=== PATIENT | male | born 1940 ===

== ENCOUNTER 2017-01-16 08:17 | Observation (INO) | payer MEDICARE ==
[2017-01-16 08:33] VITALS: BMI 25.6
--- NOTE | 2017-01-16 08:39 | ED PDOC ---
HPI: Chest Pain Time Seen by Provider: 01/16/17 08:18 Chief Complaint (Nursing): Chest Pain Chief Complaint (Provider): Chest Pain History Per: Patient History/Exam Limitations: no limitations Onset/Duration Of Symptoms: Days (x7) Current Symptoms Are (Timing): Still Present Additional Complaint(s): Reece Waddell is a 76 year old male with a past medical history of hypertension and CHF presenting to the ED for an evaluation of a 1 week history of back pain worsening on inspiration. The patient denies shortness of breath, cough, fever, or chest pain. PMD: Past Medical History Reviewed: Historical Data, Nursing Documentation, Vital Signs Vital Signs: Last Vital Signs Temp 97.6 F 01/16/17 08:34 Pulse 90 01/16/17 11:16 Resp 19 01/16/17 11:16 BP 170/90 H 01/16/17 11:16 Pulse Ox 98 01/16/17 08:34 - Medical History PMH: CHF, HTN - Family History Family History: States: Unknown Family Hx - Home Medications Home Medications: Ambulatory Orders Medication Instructions Recorded Allopurinol [Zyloprim] 100 mg PO BID 01/16/17 Lisinopril [Zestril] 20 mg PO DAILY 01/16/17 Pravastatin Sodium [Pravachol] 20 mg PO HS 01/16/17 amLODIPine [Norvasc] 5 mg PO DAILY 01/16/17 - Allergies Allergies/Adverse Reactions: Allergies Allergy/AdvReac Type Severity Reaction Status Date / Time No Known Allergies Allergy Verified 01/16/17 08:33 Review of Systems ROS Statement: Except As Marked, All Systems Reviewed And Found Negative Constitutional: Negative for: Fever Cardiovascular: Negative for: Chest Pain Respiratory: Negative for: Cough, Shortness of Breath Musculoskeletal: Positive for: Back Pain Physical Exam - Reviewed Nursing Documentation Reviewed: Yes Vital Signs Reviewed: Yes - Physical Exam Appears: Positive for: Well, Non-toxic, No Acute Distress Head Exam: Positive for: ATRAUMATIC, NORMAL INSPECTION, NORMOCEPHALIC Skin: Positive for: Normal Color, Warm, Dry Eye Exam: Positive for: EOMI, Normal appearance, PERRL Neck: Positive for: Normal, Painless ROM, Supple Cardiovascular/Chest: Positive for: Regular Rate, Rhythm, Chest Non Tender Respiratory: Positive for: Decreased Breath Sounds (bilaterally). Negative for : Wheezing, Respiratory Distress Gastrointestinal/Abdominal: Positive for: Normal Exam, Bowel Sounds, Soft Back: Positive for: Normal Inspection Extremity: Positive for: Normal ROM Neurologic/Psych: Positive for: Alert, Oriented. Negative for: Motor/Sensory Deficits - Laboratory Results Result Diagrams: 01/16/17 08:58 01/16/17 08:58 Medical Decision Making Medical Decision Making: Time: 08:18 Impression: Chest Pain Plan: * ED EKG * COMP Metabolic Panel * Troponin I * CBC (With Differential) * D Dimer [COAG] * Chest Two Views (PA/LAT) [RAD] * Reevaluation EKG with bifascicular block with no previous EKG to compare. Initial troponin neg. CT chest no PE or aortic aneurysm. Will place in obs for chest/back pain and abnormal EKG with no previous EKG to compare. Scribe Attestation: Documented by Francesca Diaz, acting as a scribe for Willy Ochoa MD. Provider Scribe Attestation: All medical record entries made by the Scribe were at my direction and personally dictated by me. I have reviewed the chart and agree that the record accurately reflects my personal performance of the history, physical exam, medical decision making, and the department course for this patient. I have also personally directed, reviewed, and agree with the discharge instructions and disposition. Disposition - Clinical Impression Clinical Impression: Chest pain - Patient ED Disposition Is Patient to be Admitted: Yes - Disposition Disposition Time: 11:49 Condition: FAIR Forms: Handprint (Yoruba) - Pt Status Changed To: Hospital Disposition Of: Observation - POA Present On Arrival: None
[2017-01-16 09:05] LABS: BASO # 0.1 K/uL (0.0-0.2); BASO % 0.8 % (0.0-2.0); EOS % 0.2 % (0.0-4.0); LYMPH # 1.2 K/uL (1.0-4.3); LYMPH % 10.3 % (20.0-40.0); MEAN CELL VOLUME 88.2 fl (80.0-94.0); MEAN CORPUSCULAR HGB CONC 32.9 g/dL (33.0-37.0); MEAN PLATELET VOLUME 7.9 fl (7.2-11.7); MONO # 1.3 K/uL (0.0-0.8); MONO % 11.7 % (0.0-10.0); NEUT # 8.9 K/uL (1.8-7.0); RED CELL DISTRIBUTION WIDTH 13.6 % (11.5-14.5); WHITE BLOOD COUNT 11.6 K/uL (4.8-10.8)
[2017-01-16 09:15] LABS: ALB/GLOB RATIO 1.2 (1.0-2.1); ALKALINE PHOSPHATASE 121 U/L (38-126); ALT/SGPT 66 U/L (21-72); AST/SGOT 73 U/L (17-59); BILIRUBIN,TOTAL 1.3 mg/dl (0.2-1.3); BLOOD UREA NITROGEN 14 mg/dl (9-20); CALCIUM 9.6 mg/dL (8.4-10.2); CARBON DIOXIDE 24 mmol/L (22-30); CHLORIDE 103 mmol/L (98-107); GFR AFRICAN-AMERICAN > 60; GLUCOSE,RANDOM 110 mg/dL (75-110); POTASSIUM 4.1 MMOL/L (3.6-5.0); SODIUM 138 mmol/l (132-148); TOTAL PROTEIN 8.1 G/DL (6.3-8.2)
[2017-01-16] MEDS ORDERED: Iodixanol 320 MG/ML 100 ML BOTTLE IV ONE (10:42)
[2017-01-16] MEDS ORDERED: Sodium Chloride 0.9% 50 ML IV ONE (10:42)
--- NOTE | 2017-01-16 11:31 | CT ---
PROCEDURE: CT Chest with contrast (Pulmonary Angiogram) HISTORY: Back pain elevated d dimer COMPARISON: Chest radiograph 01/08/2017 TECHNIQUE: Axial computed tomography images were obtained of the chest in the pulmonary arterial phase of enhancement. Coronal and sagittal reformatted images were created and reviewed. Intravenous contrast dose: Visipaque 320, 90 cc Radiation dose: Total exam DLP = 340 mGy-cm. This CT exam was performed using one or more of the following dose reduction techniques: Automated exposure control, adjustment of the mA and/or kV according to patient size, and/or use of iterative reconstruction technique. FINDINGS: PULMONARY ARTERIES: Unremarkable. No pulmonary embolism. AORTA: No acute findings. No thoracic aortic aneurysm. LUNGS: Limited ground-glass opacity seen primarily in the bilateral upper lobes which is of uncertain origin. Linear atelectasis is appreciable lingula versus fibrosis. Left hemidiaphragm appears mildly elevated, etiology indeterminate. The bilateral hilar regions appear unremarkable bilaterally. No nodule, mass or pulmonary consolidation. PLEURAL SPACES: Unremarkable. No effusion or pneuomothorax. HEART: Cardiomegaly is noted without pericardial effusion or pulmonary vascular derangement evident. LYMPH NODES: No lymphadenopathy. BONES, CHEST WALL: Multilevel thoracic spondylosis identified. OTHER FINDINGS: Left renal cyst identified including a 4.0 cm upper pole left renal cyst incompletely captured in this exam. IMPRESSION: 1. Limited ground-glass opacity seen in the bilateral upper lobes without alveolitis or other interstitial process appreciable. No pleural or pericardial effusion. 2. No CT evidence of pulmonary embolus. 3. Cardiomegaly.
--- NOTE | 2017-01-16 11:40 | RAD ---
HISTORY: back pain COMPARISON: Comparison is made to 01/15/2013 TECHNIQUE: Chest PA and lateral FINDINGS: LUNGS: The right lung appears smaller in size than the left. The possibility of partial atelectasis of the right upper lobe cannot be excluded. Widening of the mediastinum is also noted. . Elevation of the left hemidiaphragm is again noted. Mild atelectasis at the left lung base is also noted. PLEURA: No significant pleural effusion identified. No pneumothorax apparent. CARDIOVASCULAR: Normal. OSSEOUS STRUCTURES: Diffuse osteopenia and degenerative changes are seen in the spine. VISUALIZED UPPER ABDOMEN: Normal. OTHER FINDINGS: None. IMPRESSION: Left lung base atelectasis and elevation of the left hemidiaphragm. Diffuse osteopenia and degenerative changes in the spine.
[2017-01-16] MEDS ORDERED: Pneumococcal 23-Valent Vaccine IM ONE (20:00)
--- NOTE | 2017-01-16 20:33 | CARD ---
APPROVED REPORT EXAM: Two-dimensional and M-mode echocardiogram with Doppler and color Doppler. Other Information Quality : GoodRhythm : Tachycardia INDICATION Chest Pain 2D DIMENSIONS IVSd0.94 (0.7-1.1cm)LVDd3.98 (3.9-5.9cm) LVOT Diameter2.02 (1.8-2.4cm)PWd0.88 (0.7-1.1cm) IVSs1.22 (0.8-1.2cm)LVDs3.15 (2.5-4.0cm) FS (%) 21.0 %PWs1.25 (0.8-1.2cm) LVEF (%)55.0 (>50%) M-Mode DIMENSIONS Left Atrium (MM)3.74 (2.5-4.0cm)IVSd1.03 (0.7-1.1cm) Aortic Root3.21 (2.2-3.7cm)LVDd5.68 (4.0-5.6cm) Aortic Cusp Exc.2.18 (1.5-2.0cm)PWd1.47 (0.7-1.1cm) IVSs1.68 cmFS (%) 37 % LVDs3.56 (2.0-3.8cm)PWs1.82 cm Mitral Valve MV E Kkslgxsg40.7cm/sMV DECEL [id number] A Ptefddgc762.7cm/s MV DFB58ymS/A ratio0.4MVA (PHT)5.38cm2 TDI Lateral E' Peak V7.50cm/sMedial E' Peak V5.79cm/sE/Lateral E'4.9 E/Medial E'6.3 Pulmonary Valve PV Peak Xpkzwqfw07.8cm/s Tricuspid Valve TR Peak Wjksacrl863rv/sRAP FOJYEOGA85shUdDP Peak Gr.20mmHg GDYW70mtEg LEFT VENTRICLE The left ventricle is normal size. There is mild concentric left ventricular hypertrophy. The left ventricular function is normal. The left ventricular ejection fraction is within the normal range. There is normal LV segmental wall motion. Transmitral Doppler flow pattern is Grade I-abnormal relaxation pattern. RIGHT VENTRICLE The right ventricle is normal size. There is normal right ventricular wall thickness. The right ventricular systolic function is normal. ATRIA The left atrium size is normal. The right atrium size is normal. AORTIC VALVE The aortic valve is mildly thickened. There is trace aortic regurgitation. There is no aortic valvular stenosis. MITRAL VALVE The mitral valve is mildly thickened. There is no mitral valve stenosis. Mitral regurgitation is trace. TRICUSPID VALVE The tricuspid valve is normal in structure and function. There is no tricuspid valve regurgitation noted. PULMONIC VALVE The pulmonary valve is normal in structure There is trace pulmonic valvular regurgitation. GREAT VESSELS The aortic root is normal in size. The IVC was not visualized. PERICARDIAL EFFUSION The pericardium appears normal. <Conclusion> The left ventricle is normal size. There is mild concentric left ventricular hypertrophy. The left ventricular function is normal. The left ventricular ejection fraction is within the normal range. There is normal LV segmental wall motion. Transmitral Doppler flow pattern is Grade I-abnormal relaxation pattern.
--- NOTE | 2017-01-16 21:37 | CARD ---
APPROVED REPORT EKG Measurement Heart [id number] <Conclusion> Normal sinus rhythm Right bundle branch block Left anterior fascicular block Bifascicular block Minimal voltage criteria for LVH, may be normal variant Abnormal ECG
[2017-01-16] MEDS ORDERED: Pravastatin Sodium 20 MG TAB PO SCH (22:00)
--- NOTE | 2017-01-17 11:42 | RAD ---
HISTORY: abnormal CXR COMPARISON: Chest radiographs 01/16/2017 TECHNIQUE: Chest PA and lateral FINDINGS: LUNGS: No active pulmonary disease. PLEURA: No significant pleural effusion identified. No pneumothorax apparent. Left hemidiaphragm appears somewhat elevated which may be due to gas at the splenic flexure, somewhat increased in the interval. Clinically correlate further. CARDIOVASCULAR: Cardiomediastinal silhouette appears stable. OSSEOUS STRUCTURES: No significant abnormalities. VISUALIZED UPPER ABDOMEN: Normal. OTHER FINDINGS: None. IMPRESSION: No acute infiltrate or pleural effusion identified. Left hemidiaphragm slightly elevated composite from gas in the splenic flexure increasing.
[2017-01-17 12:37] VITALS: O2SAT 96
--- NOTE | 2017-01-17 12:42 | CP.PCM.HP ---
History of Present Illness - History of Present Illness History of Present Illness: 76 year old male with a past medical history of HTN and CHF presenting to the ED yesterday c/o upper back pain since last Monday, worsening with inspiration. Patient also reports pain to auto-palpation of trapezius muscles b/l, slightly relief with tylenol at home. The patient denies shortness of breath, cough, fever, chest pain, chills, night sweats. patient seen and examined with attending this morning still c/o right sided subscapular pain reproduced with deep inspiration, denies other complains Present on Admission - Present on Admission Any Indicators Present on Admission: No History of DVT/PE: No History of Uncontrolled Diabetes: No Urinary Catheter: No Decubitus Ulcer Present: No Review of Systems - Review of Systems All systems: reviewed and no additional remarkable complaints except (as per HPI ) Past Patient History - Past Medical History & Family History Past Medical History?: Yes - Past Social History Smoking Status: Never Smoked - CARDIAC Hx Cardiac Disorders: Yes Hx Congestive Heart Failure: Yes Hx Hypertension: Yes - PULMONARY Hx Respiratory Disorders: No - NEUROLOGICAL Hx Neurological Disorder: No - HEENT Hx HEENT Problems: No - RENAL Hx Chronic Kidney Disease: No - ENDOCRINE/METABOLIC Hx Endocrine Disorders: No - HEMATOLOGICAL/ONCOLOGICAL Hx Blood Disorders: No - INTEGUMENTARY Hx Dermatological Problems: No - MUSCULOSKELETAL/RHEUMATOLOGICAL Hx Musculoskeletal Disorders: No Hx Falls: No - GASTROINTESTINAL Hx Bowel Surgery: Yes - GENITOURINARY/GYNECOLOGICAL Hx Genitourinary Disorders: No - PSYCHIATRIC Hx Psychophysiologic Disorder: No Hx Substance Use: No - SURGICAL HISTORY Hx Surgeries: Yes Other/Comment: colon surgery - ANESTHESIA Hx Anesthesia: Yes Hx Anesthesia Reactions: No Hx Malignant Hyperthermia: No Has any member of the family had a problem w/ anesthesia?: No Meds Allergies/Adverse Reactions: Allergies Allergy/AdvReac Type Severity Reaction Status Date / Time No Known Allergies Allergy Verified 01/16/17 08:33 Physical Exam - Constitutional Appears: No Acute Distress - ENT Exam ENT Exam: Mucous Membranes Moist - Respiratory Exam Respiratory Exam: NORMAL BREATHING PATTERN. absent: Rhonchi, Wheezes, Respiratory Distress Additional comments: crackles in lower lobes b/l - Cardiovascular Exam Cardiovascular Exam: REGULAR RHYTHM, +S1, +S2 - GI/Abdominal Exam GI & Abdominal Exam: Normal Bowel Sounds, Soft. absent: Distended, Guarding, Rebound, Rigid, Tenderness - Extremities Exam Extremities exam: Positive for: normal inspection. Negative for: calf tenderness, pedal edema - Back Exam Additional comments: tenderness to palpation of trapeziums muscles b/l, no tenderness to palpation over vertebral spine or paraspinal muscles. - Neurological Exam Neurological exam: Alert, Oriented x3 - Skin Skin Exam: Dry, Intact, Normal Color Results - Vital Signs Recent Vital Signs: Last Vital Signs Temp 97.9 F 01/17/17 08:00 Pulse 90 01/17/17 09:21 Resp 18 01/17/17 08:00 BP 115/70 01/17/17 09:21 Pulse Ox 95 01/17/17 08:00 - Labs Result Diagrams: 01/16/17 08:58 01/16/17 08:58 Labs: Laboratory Results - last 24 hr 01/16/17 01/17/17 18:25 01:00 Troponin I < 0.0120 < 0.0120 Assessment & Plan - Assessment and Plan (Free Text) Plan: Upper back pain worsening with inspiration admit to tele for obs -Troponin x # neg -CXR showed widening of the mediastinum noted. -consider repeat CXR c/w statin consider aspirin f/u Cardiology rec HTN re-assume home meds DVT prophylaxis lovenox SC - Date & Time Date: 01/17/17 Time: 07:55
--- NOTE | 2017-01-17 14:37 | CP.PCM.PCO ---
Assessment/Plan - Assessment/Plan Assessment (Free Text): Pt stable, all tests and imaging negative . Pt seen and cleared for d/c by Dr. Calle. Pt to f/u with PMD or Dr. Calle in 1 week - Consults Consult Orders: Consultations 01/16/17 17:20 Pastoral Care Referral Routine Comment: Physician Instructions: as above Reason For Exam: spiritual care - Problems Patient Problems: Problem List (Active/Current) Problem Status Onset Code Chest pain Acute R07.9
--- NOTE | 2017-01-17 17:11 | CP.PCM.DIS ---
Provider - Provider Date of Admission: 01/16/17 11:50 Attending physician: Dell Addison MD Time Spent in preparation of Discharge (in minutes): 30 Diagnosis - Discharge Diagnosis (1) Chest pain Status: Acute Comment: with inspiration, reproduced with palpation, and improved with tylenol. troponin x 3 neg. ACS r/o. We recommended to f/u with PMD for PFT and work up for interstitial lung diseases as outpatient. (2) Hypertension Status: Chronic Comment: controoled. c/w home meds and f/u with PMD. (3) History of CHF (congestive heart failure) Status: Chronic Comment: most likely diastolic. Echo showed EF wNL. Controlled. F/u with PMD. Hospital Course - Lab Results Lab Results: Most Recent Lab Values WBC 11.6 K/uL (4.8-10.8) H 01/16/17 08:58 RBC 4.87 Mil/uL (4.40-5.90) 01/16/17 08:58 Hgb 14.1 g/dL (12.0-18.0) 01/16/17 08:58 Hct 43.0 % (35.0-51.0) 01/16/17 08:58 MCV 88.2 fl (80.0-94.0) 01/16/17 08:58 MCH 29.0 pg (27.0-31.0) 01/16/17 08:58 MCHC 32.9 g/dL (33.0-37.0) L 01/16/17 08:58 RDW 13.6 % (11.5-14.5) 01/16/17 08:58 Plt Count 186 K/uL (130-400) 01/16/17 08:58 MPV 7.9 fl (7.2-11.7) 01/16/17 08:58 Neut % (Auto) 77.0 % (50.0-75.0) H 01/16/17 08:58 Lymph % (Auto) 10.3 % (20.0-40.0) L 01/16/17 08:58 [place] % (Auto) 11.7 % (0.0-10.0) H 01/16/17 08:58 Eos % (Auto) 0.2 % (0.0-4.0) 01/16/17 08:58 Baso % (Auto) 0.8 % (0.0-2.0) 01/16/17 08:58 Neut # 8.9 K/uL (1.8-7.0) H 01/16/17 08:58 Lymph # 1.2 K/uL (1.0-4.3) 01/16/17 08:58 [place]ton # 1.3 K/uL (0.0-0.8) H 01/16/17 08:58 Eos # 0.0 K/uL (0.0-0.7) 01/16/17 08:58 Baso # 0.1 K/uL (0.0-0.2) 01/16/17 08:58 D-Dimer, Quantitative 632 ng/mlDDU (0-230) H 01/16/17 08:58 Sodium 138 mmol/l (132-148) 01/16/17 08:58 Potassium 4.1 MMOL/L (3.6-5.0) 01/16/17 08:58 Chloride 103 mmol/L (98-107) 01/16/17 08:58 Carbon Dioxide 24 mmol/L (22-30) 01/16/17 08:58 Anion Gap 16 (10-20) 01/16/17 08:58 BUN 14 mg/dl (9-20) 01/16/17 08:58 Creatinine 1.1 mg/dL (0.8-1.5) 01/16/17 08:58 Est GFR ( Amer) > 60 01/16/17 08:58 Est GFR (Non-Af Amer) > 60 01/16/17 08:58 Random Glucose 110 mg/dL (75-110) 01/16/17 08:58 Calcium 9.6 mg/dL (8.4-10.2) 01/16/17 08:58 Total Bilirubin 1.3 mg/dl (0.2-1.3) 01/16/17 08:58 AST 73 U/L (17-59) H 01/16/17 08:58 ALT 66 U/L (21-72) 01/16/17 08:58 Alkaline Phosphatase 121 U/L (38-126) 01/16/17 08:58 Troponin I < 0.0120 ng/mL (0.00-0.120) 01/17/17 01:00 Total Protein 8.1 G/DL (6.3-8.2) 01/16/17 08:58 Albumin 4.4 g/dL (3.5-5.0) 01/16/17 08:58 Globulin 3.7 gm/dL (2.2-3.9) 01/16/17 08:58 Albumin/Globulin Ratio 1.2 (1.0-2.1) 01/16/17 08:58 - Date & Time of H&P Date of H&P: 01/17/17 Time of H&P: 10:00 Discharge Exam - Head Exam Head Exam: ATRAUMATIC, NORMAL INSPECTION, NORMOCEPHALIC - Eye Exam Eye Exam: Normal appearance - ENT Exam ENT Exam: Mucous Membranes Moist - Respiratory Exam Respiratory Exam: NORMAL BREATHING PATTERN. absent: Rhonchi, Wheezes, Respiratory Distress - Cardiovascular Exam Cardiovascular Exam: REGULAR RHYTHM, +S1, +S2 - GI/Abdominal Exam GI & Abdominal Exam: Normal Bowel Sounds, Soft. absent: Distended, Guarding, Rebound, Tenderness - Extremities Exam Extremities exam: normal inspection Additional comments: no calf tenderness, no edema noted b/l - Neurological Exam Neurological exam: Alert, Oriented x3 - Skin Skin Exam: Dry, Intact, Normal Color Discharge Plan - Follow Up Plan Condition: GOOD Disposition: HOME/ ROUTINE Patient education suggested?: Yes Instructions: Chest Pain (DC) Additional Instructions: F/u with PMD for pulmonary function testing
[2017-01-17 17:15] VITALS: BP 123/75; PULSE 87; RESP 14; TEMP 98.4
[2017-01-17] MEDS ORDERED: Enoxaparin 40 mg Syringe SC SCH (21:00)
== END 2017-01-17 16:10 | disposition home or self-care (01) ==
LOC: H.ER 08:17 → H.ERHOLD 11:50 → H.TEL 14:53
PROVIDERS: ADMIT Family Medicine; ATTEND Family Medicine
DX: R07.89 Other chest pain (principal); M54.6 Pain in thoracic spine; I11.0 Hypertensive heart disease with heart failure; I50.32 Chronic diastolic (congestive) heart failure; Z23 Encounter for immunization
CPT/HCPCS: 36415; 71020; 71275; 80053; 84484; 85025; 85378; 90732; 93005; 93306; 99285; G0009; G0378; Q9967